=== PATIENT | male | born 1995 | race Caucasian/White ===

== ENCOUNTER 2020-10-15 14:58 | Emergency (ER) | payer OTHER ==
[~2020-10-15] VITALS: Ht 177.8 cm; Wt 77.1 kg
[~2020-10-15 14:58] MED LIST: NOHOMEMEDICATIONS
[2020-10-15 15:52] LABS: ABSOLUTE BASOPHILS 0.1 thou/uL (0.0-0.2); ABSOLUTE EOSINOPHILS 0.2 thou/uL (0.0-0.7); ABSOLUTE LYMPHOCYTES 2.9 thou/uL (0.8-5.3); ABSOLUTE NEUTROPHILS 8.1 thou/uL (1.6-8.1); EOSINOPHILS 1.8 %; HEMATOCRIT 36.8 % (42.0-52.0); HEMOGLOBIN 12.3 gm/dL (14.0-18.0); LYMPHOCYTES 23.5 %; MCH 28.4 pg (26.0-34.0); MCHC 33.4 g/dL (28.0-37.0); MCV 84.8 fL (80.0-100.0); MPV 7.5 fl. (7.2-11.1); NUCLEATED RBCS 0 /100WBC; PLATELET COUNT* 294 thou/uL (150-400); POLYS 65.7 %; RBC 4.34 mil/uL (4.50-6.00); RDW-CV 13.9 % (10.5-14.5); WBC 12.3 thou/uL (4.0-11.0)
[2020-10-15 15:56] LABS: CALCIUM 8.5 mg/dL (8.5-10.1); POTASSIUM 3.7 mmol/L (3.5-5.1)
[2020-10-15 16:01] LABS: ALBUMIN 3.6 g/dL (3.4-5.0); TOTAL BILIRUBIN 0.3 mg/dL (<0.1-1.0); TOTAL PROTEIN 7.1 g/dL (6.4-8.2)
[2020-10-15] MEDS ORDERED: CLINDAMYCIN HC300 MG PO (17:04)
[2020-10-15] MEDS ORDERED: CENTANY30 GM TOP (17:05)
[2020-10-15] MEDS ORDERED: APAP W/CODEINE1 TA2 PO (17:08)
[2020-10-15 17:48] VITALS: BP 131/70
== END 2020-10-15 17:49 | disposition home or self-care (01) ==
LOC: M.ERS 14:58
PROVIDERS: Physician Assistant
DX: L02.01 Cutaneous abscess of face (principal); F17.210 Nicotine dependence, cigarettes, uncomplicated; Z88.1 Allergy status to other antibiotic agents